=== PATIENT | female | born 1995 | race American Indian/Alaskan Native ===

== ENCOUNTER 2017-02-14 13:36 | Emergency (ER) | payer MEDICAID, OTHER ==
[2017-02-14 13:52] VITALS: BP 115/51
[2017-02-14 14:20] LABS: Basophils % (Auto) 0.7 % (0.0-1.8); Hematocrit 41.3 % (30.3-42.9); Hemoglobin 13.2 gm/dl (10.1-14.3); Mean Corpuscular HGB Conc 32 % (30-34); Mean Corpuscular Hemoglobin 26 pg (28-32); Mean Corpuscular Volume 82 fl (79-97); Red Blood Count 5.02 M/mm3 (3.65-5.03); Red Cell Distribution Width 13.2 % (13.2-15.2); White Blood Count 5.6 K/mm3 (4.5-11.0)
[2017-02-14 14:33] LABS: Platelet Count 134 K/mm3 (140-440)
[2017-02-14 14:40] LABS: Anion Gap 19 mmol/L; BUN/Creatinine Ratio 12; Blood Urea Nitrogen 6 mg/dL (7-17); Calcium 9.1 mg/dL (8.4-10.2); Carbon Dioxide 23 mmol/L (22-30); Chloride 99.7 mmol/L (98-107); Glucose 78 mg/dL (65-100); Potassium 3.6 mmol/L (3.6-5.0); Sodium 138 mmol/L (137-145)
[2017-02-14 15:59] LABS: Urine Drugs of Abuse Note Disclamer
[2017-02-14 16:16] LABS: Bilirubin,Urine NEG (Negative); Blood,Urine NEG (Negative); Ketones,Urine NEG (Negative); Leukocyte Esterase,Urine NEG (Negative); Mucus,Urine 2+ /HPF; Nitrite,Urine NEG (Negative); Protein,Urine <15 mg/dL mg/dL (Negative); Urobilinogen,Urine < 2.0 mg/dL (<2.0)
--- NOTE | 2017-02-14 16:35 | ED Elopement Review ---
ED Pt Elopement review - Results review Lab results: Laboratory Tests 02/14/17 02/14/17 02/14/17 14:08 14:08 14:08 WBC RBC Hgb Hct MCV MCH MCHC RDW Plt Count Lymph % (Auto) [place] % (Auto) Eos % (Auto) Baso % (Auto) Lymph # [place] # Eos # Baso # Seg Neutrophils % Seg Neutrophils # Sodium 138 Potassium 3.6 Chloride 99.7 Carbon Dioxide 23 Anion Gap 19 BUN 6 L Creatinine 0.5 L Estimated GFR > 60 BUN/Creatinine Ratio 12 Glucose 78 Calcium 9.1 HCG, Qual Positive Urine Color Urine Turbidity Urine pH Ur Specific [place] Urine Protein Urine Glucose (UA) Urine Ketones Urine Blood Urine Nitrite Urine Bilirubin Urine Urobilinogen Ur Leukocyte Esterase Urine WBC (Auto) Urine RBC (Auto) U Epithel Cells (Auto) Urine Mucus Plasma/Serum Alcohol < 0.01 02/14/17 02/14/17 14:08 15:33 WBC 5.6 RBC 5.02 Hgb 13.2 Hct 41.3 MCV 82 MCH 26 L MCHC 32 RDW 13.2 Plt Count 134 L Lymph % (Auto) 29.9 [place] % (Auto) 6.6 Eos % (Auto) 0.0 Baso % (Auto) 0.7 Lymph # 1.7 [place] # 0.4 Eos # 0.0 Baso # 0.0 Seg Neutrophils % 62.8 Seg Neutrophils # 3.5 Sodium Potassium Chloride Carbon Dioxide Anion Gap BUN Creatinine Estimated GFR BUN/Creatinine Ratio Glucose Calcium HCG, Qual Urine Color Yellow Urine Turbidity Clear Urine pH 6.0 Ur Specific [place] 1.019 Urine Protein <15 mg/dl Urine Glucose (UA) Neg Urine Ketones Neg Urine Blood Neg Urine Nitrite Neg Urine Bilirubin Neg Urine Urobilinogen < 2.0 Ur Leukocyte Esterase Neg Urine WBC (Auto) 9.0 H Urine RBC (Auto) 5.0 U Epithel Cells (Auto) 8.0 Urine Mucus 2+ Plasma/Serum Alcohol - Call Back decision Pt Call Back Decision: Call pt to return to ED QUIRINO (when I went to see the patient she had eloped from the emergency department. Triage information mentions suicidal ideation. Given to the charge nurse and police will be notified.)
== END 2017-02-14 16:39 | disposition left against medical advice (07) ==
LOC: EEVIPCON 13:36 → ED 13:36
DX: O26.891 Other specified pregnancy related conditions, first trimester (principal); F32.9 Major depressive disorder, single episode, unspecified; Z3A.01 Less than 8 weeks gestation of pregnancy; Z53.21 Procedure and treatment not carried out due to patient leaving prior to being seen by health care provider
CPT/HCPCS: 36415; 80048; 80307; 81001; 84703; 85025; G0480; 80320

== ENCOUNTER 2017-02-20 21:07 | Emergency (ER) | payer MEDICAID, OTHER ==
[2017-02-20] MEDS ORDERED: TYLENOL ONE (22:37)
[2017-02-20 23:03] LABS: Basophils % (Auto) 0.6 % (0.0-1.8); Eosinophils % (Auto) 0.5 % (0.0-4.3); Hematocrit 37.5 % (30.3-42.9); Hemoglobin 12.1 gm/dl (10.1-14.3); Mean Corpuscular HGB Conc 32 % (30-34); Mean Corpuscular Hemoglobin 26 pg (28-32); Mean Corpuscular Volume 81 fl (79-97); Platelet Count 173 K/mm3 (140-440); Red Blood Count 4.62 M/mm3 (3.65-5.03); Red Cell Distribution Width 13.2 % (13.2-15.2); White Blood Count 6.5 K/mm3 (4.5-11.0)
[2017-02-20 23:24] LABS: Alanine Aminotransferase 12 units/L (7-56); Albumin 4.3 g/dL (3.9-5); Albumin/Globulin Ratio 1.6 %; Alkaline Phosphatase 55 units/L (35-129); Anion Gap 18 mmol/L; BUN/Creatinine Ratio 10; Blood Urea Nitrogen 5 mg/dL (7-17); Calcium 9.2 mg/dL (8.4-10.2); Carbon Dioxide 23 mmol/L (22-30); Chloride 100.2 mmol/L (98-107); Glucose 79 mg/dL (65-100); Lipase 10 units/L (13-60); Sodium 137 mmol/L (137-145)
[2017-02-21 00:31] LABS: Bilirubin,Urine NEG (Negative); Blood,Urine NEG (Negative); Ketones,Urine NEG (Negative); Leukocyte Esterase,Urine NEG (Negative); Mucus,Urine FEW /HPF; Nitrite,Urine NEG (Negative); Protein,Urine <15 mg/dL mg/dL (Negative); Urobilinogen,Urine < 2.0 mg/dL (<2.0)
--- NOTE | 2017-02-21 02:02 | Ultrasound Report ---
FINAL REPORT PROCEDURE: US OB TRANSVAGINAL TECHNIQUE: Real-time transvaginal sonography of the uterus, placenta, amniotic fluid, adnexa, and fetus was performed with image documentation. Measurements were obtained to determine age/size. M-mode Doppler was used to document heartbeat. CPT 48529 HISTORY: vaginal bleed with COMPARISON: No prior studies are available for comparison. FINDINGS: CRL: 24.7mm, which corresponds to a gestational age of: 9weeks, 1 days. Yolk Sac: Normal. Embryonic Cardiac Activity: 168 beats per minute Gestational Sac: Normal. There are 3 discrete subchorionic hematomas measuring 2.5 centimeters, 1.8 centimeters and 2 centimeters. Right Ovary: There is a 1.6 centimeters cyst. Left Ovary: There is a 1 centimeter cyst. Estimated delivery date: 09/25/2017 Comment: Complete anatomic survey at 18-20 weeks suggested. IMPRESSION: 1. Single living intrauterine gestation at approximately 9 weeks and 1 day 2. EDC by US 09/25/2017. 3. There are multiple subchorionic hematomas.
--- NOTE | 2017-02-21 02:02 | Ultrasound Report ---
FINAL REPORT PROCEDURE: US OB TRANSVAGINAL TECHNIQUE: Real-time transvaginal sonography of the uterus, placenta, amniotic fluid, adnexa, and fetus was performed with image documentation. Measurements were obtained to determine age/size. M-mode Doppler was used to document heartbeat. CPT 91763 HISTORY: vaginal bleed with COMPARISON: No prior studies are available for comparison. FINDINGS: CRL: 24.7mm, which corresponds to a gestational age of: 9weeks, 1 days. Yolk Sac: Normal. Embryonic Cardiac Activity: 168 beats per minute Gestational Sac: Normal. There are 3 discrete subchorionic hematomas measuring 2.5 centimeters, 1.8 centimeters and 2 centimeters. Right Ovary: There is a 1.6 centimeters cyst. Left Ovary: There is a 1 centimeter cyst. Estimated delivery date: 09/25/2017 Comment: Complete anatomic survey at 18-20 weeks suggested. IMPRESSION: 1. Single living intrauterine gestation at approximately 9 weeks and 1 day 2. EDC by US 09/25/2017. 3. There are multiple subchorionic hematomas.
[2017-02-21 03:16] VITALS: BP 126/81
--- NOTE | 2017-02-21 03:42 | Emergency Department Report ---
ED Female HPI - General Chief complaint: Vaginal Bleeding Stated complaint: VAGINAL BLEEDING 10 WKS PREG Time Seen by Provider: 02/21/17 03:30 Source: patient Mode of arrival: Ambulatory Limitations: No Limitations - History of Present Illness Initial comments: 21-year-old female voluntary from [facility], is with some vaginal spotting. She denied tissue she denied clots. She's had intermittent vaginal spotting with occasional lower abdominal cramps. She denies heavy bleeding she denies soaking pads she denies dizziness or syncope she denies nausea vomiting diarrhea denies any chest pain or other complaints. MD Complaint: vaginal bleeding Associated Symptoms: abdominal pain. denies: vaginal discharge, headaches, loss of appetite, dysuria, hematuria, shortness of breath, syncope, weakness - Related Data Home Medications Medication Instructions Recorded Confirmed Last Taken No Known Home Medications [No 05/23/13 06/06/13 Unknown Reported Home Medications] Allergies Allergy/AdvReac Type Severity Reaction Status Date / Time ibuprofen [From Motrin] Allergy Angioedema Verified 02/14/17 13:43 Penicillins Allergy Rash Verified 02/14/17 13:43 ED Review of Systems ROS: Stated complaint: VAGINAL BLEEDING 10 WKS PREG Other details as noted in HPI Comment: All other systems reviewed and negative Constitutional: denies: diaphoresis, fever, malaise, weakness Respiratory: denies: orthopnea, shortness of breath, SOB with exertion, SOB at rest, stridor Cardiovascular: denies: chest pain, palpitations, dyspnea on exertion, orthopnea , edema, syncope Gastrointestinal: denies: nausea, vomiting, diarrhea, constipation, hematemesis , melena, hematochezia Neurological: denies: numbness, paresthesias, confusion, vertigo ED Past Medical Hx - Past Medical History Hx Arthritis: Yes Hx Psychiatric Treatment: Yes (depression) Additional medical history: Prior suicide attmept - Surgical History Past Surgical History?: No - Social History Smoking Status: Never Smoker Substance Use Type: None - Medications Home Medications: Home Medications Medication Instructions Recorded Confirmed Last Taken Type No Known Home Medications [No 05/23/13 06/06/13 Unknown History Reported Home Medications] ED Physical Exam - General Limitations: No Limitations General appearance: alert, in no apparent distress - Head Head exam: Present: atraumatic, normocephalic - Eye Eye exam: Present: normal appearance, PERRL, EOMI - ENT ENT exam: Present: normal exam - Neck Neck exam: Present: normal inspection. Absent: tenderness, meningismus - Respiratory Respiratory exam: Present: normal lung sounds bilaterally. Absent: respiratory distress, wheezes, rales, rhonchi, stridor - Cardiovascular Cardiovascular Exam: Present: regular rate, normal rhythm, normal heart sounds. Absent: rubs, gallop - GI/Abdominal GI/Abdominal exam: Present: soft. Absent: distended, tenderness, guarding, rebound, rigid, pulsatile mass - Extremities Exam Extremities exam: Present: normal inspection, full ROM. Absent: tenderness, normal capillary refill, pedal edema, calf tenderness - Neurological Exam Neurological exam: Present: alert, oriented X3, CN II-XII intact, normal gait. Absent: motor sensory deficit - Psychiatric Psychiatric exam: Present: anxious - Skin Skin exam: Present: warm. Absent: diaphoretic, erythema ED Course Vital Signs 02/20/17 02/21/17 22:29 03:14 Temperature 98.2 F 98.2 F Pulse Rate 66 96 H Respiratory 18 16 Rate Blood Pressure 114/65 Blood Pressure 126/81 [Left] O2 Sat by Pulse 100 100 Oximetry ED Medical Decision Making - Lab Data Result diagrams: 02/20/17 22:43 02/20/17 22:43 - Radiology Data Radiology results: report reviewed Live 9 week IUP - Medical Decision Making Patient refused pelvic exam. She denied active bleeding. She is not soaking pads. She has live IUP 9 weeks symptoms are consistent with threatened AB, she' ll be referred to OB. Laboratory studies showed a normal H&H stable vital signs : Of 98,000 negative urine Rh+. no a.abdomen at this time stable for outpatient follow-up Critical care attestation.: If time is entered above; I have spent that time in minutes in the direct care of this critically ill patient, excluding procedure time. ED Disposition Clinical Impression: Threatened Disposition: DC/TX-65 PSY HOSP/PSY UNIT Is pt being admited?: No Condition: Stable Instructions: Threatened Miscarriage (ED) Additional Instructions: Pelvic rest, return immediately if new alarming symptoms such as worse bleeding dizziness or other problems Referrals: EDMUND ESQUIVEL MD [Staff Physician] - 3-5 Days Time of Disposition: 03:46
== END 2017-02-21 03:59 ==
LOC: ED 21:07
DX: O20.0 Threatened abortion (principal); Z3A.10 10 weeks gestation of pregnancy; M19.90 Unspecified osteoarthritis, unspecified site; F32.9 Major depressive disorder, single episode, unspecified; Z88.0 Allergy status to penicillin; Z88.6 Allergy status to analgesic agent
CPT/HCPCS: 36415; 76801; 76817; 80053; 81001; 83690; 84702; 85025; 86900; 86901

== ENCOUNTER 2017-04-04 14:44 | Emergency (ER) | payer MEDICAID | END 2017-04-04 15:00 | disposition left against medical advice (07) | LOC: ED 14:44 | DX: R07.89 Other chest pain (principal); Z53.21 Procedure and treatment not carried out due to patient leaving prior to being seen by health care provider | CPT/HCPCS: 93005; 93010 ==

== ENCOUNTER 2020-01-03 18:17 | Emergency (ER) | payer MEDICAID ==
[2020-01-03 18:57] VITALS: BP 115/51
[2020-01-03 20:06] LABS: Bacteria,Urine 1+ /HPF (Negative); Bilirubin,Urine NEG (Negative); Blood,Urine NEG (Negative); Color,Urine Yellow (Yellow); Mucus,Urine FEW /HPF; Protein,Urine <15 mg/dL mg/dL (Negative); Urobilinogen,Urine < 2.0 mg/dL (<2.0)
[2020-01-03 20:13] LABS: Basophils % (Auto) 0.5 % (0.0-1.8); Eosinophils # (Auto) 0.1 K/mm3 (0.0-0.4); Eosinophils % (Auto) 1.1 % (0.0-4.3); Hematocrit 35.8 % (30.3-42.9); Hemoglobin 11.6 gm/dl (10.1-14.3); Lymphocytes # (Auto) 2.1 K/mm3 (1.2-5.4); Lymphocytes % (Auto) 43.8 % (13.4-35.0); Mean Corpuscular HGB Conc 33 % (30-34); Mean Corpuscular Volume 85 fl (79-97); Monocytes # (Auto) 0.4 K/mm3 (0.0-0.8); Monocytes % (Auto) 8.6 % (0.0-7.3); Red Blood Count 4.21 M/mm3 (3.65-5.03); Red Cell Distribution Width 14.4 % (13.2-15.2)
[2020-01-03 20:13] LABS: HCG Qualitative,Urine Positive (Negative)
[2020-01-03 20:14] LABS: WBC,Urine < 1.0 /HPF (0.0-6.0)
[2020-01-03 20:18] LABS: Platelet Count 119 K/mm3 (140-440)
--- NOTE | 2020-01-03 20:23 | Emergency Department Report ---
ED General Adult HPI - General Chief complaint: Abdominal Pain Stated complaint: /BLEEDING/PAIN Time Seen by Provider: 01/03/20 19:24 Source: patient Mode of arrival: Ambulatory Limitations: No Limitations - History of Present Illness Initial comments: Patient is a 24-year-old female presents emergency room complaints of lower abdominal pain that began yesterday. She has associated vaginal spotting. She denies any heavy bleeding or passing clots. She denies any vomiting or diarrhea. She denies any fever or vaginal discharge. She states her last menstrual cycle was November 29, 2019. She states that she did 3 test [id number] which were positive. She has a past medical history of depression. Allergy to penicillin and ibuprofen. /P: 1/A: 2 - Related Data Home Medications Medication Instructions Recorded Confirmed Last Taken No Known Home Medications [No 05/23/13 06/06/13 Unknown Reported Home Medications] Allergies Allergy/AdvReac Type Severity Reaction Status Date / Time ibuprofen [From Motrin] Allergy Angioedema Verified 02/14/17 13:43 Penicillins Allergy Rash Verified 02/14/17 13:43 ED Review of Systems ROS: Stated complaint: /BLEEDING/PAIN Other details as noted in HPI Comment: All other systems reviewed and negative ED Past Medical Hx - Past Medical History Previous Medical History?: Yes Hx Arthritis: Yes Hx Psychiatric Treatment: Yes (depression) Additional medical history: Prior suicide attmept - Social History Smoking Status: Never Smoker Substance Use Type: None - Medications Home Medications: Home Medications Medication Instructions Recorded Confirmed Last Taken Type No Known Home Medications [No 05/23/13 06/06/13 Unknown History Reported Home Medications] ED Physical Exam - General Limitations: No Limitations General appearance: alert, in no apparent distress - Head Head exam: Present: atraumatic, normocephalic - Eye Eye exam: Present: normal appearance - ENT ENT exam: Present: mucous membranes moist - Respiratory Respiratory exam: Present: normal lung sounds bilaterally. Absent: respiratory distress, wheezes, rales, rhonchi, stridor, chest wall tenderness, accessory muscle use, decreased breath sounds, prolonged expiratory - Cardiovascular Cardiovascular Exam: Present: regular rate, normal rhythm, normal heart sounds. Absent: systolic murmur, diastolic murmur, rubs, gallop - GI/Abdominal GI/Abdominal exam: Present: soft, normal bowel sounds. Absent: distended, tenderness, guarding, rebound, rigid - Neurological Exam Neurological exam: Present: alert, oriented X3 - Psychiatric Psychiatric exam: Present: normal affect, normal mood - Skin Skin exam: Present: warm, dry, intact ED Course Vital Signs 01/03/20 18:48 Temperature 98.2 F Pulse Rate 88 Respiratory 16 Rate Blood Pressure 115/51 O2 Sat by Pulse 100 Oximetry ED Medical Decision Making - Lab Data Result diagrams: 01/03/20 20:03 01/03/20 20:03 Labs 01/03/20 01/03/20 01/03/20 19:00 20:03 20:03 WBC 4.8 RBC 4.21 Hgb 11.6 Hct 35.8 MCV 85 MCH 28 MCHC 33 RDW 14.4 Plt Count 119 L Lymph % (Auto) 43.8 H [place] % (Auto) 8.6 H Eos % (Auto) 1.1 Baso % (Auto) 0.5 Lymph # (Auto) 2.1 [place] # (Auto) 0.4 Eos # (Auto) 0.1 Baso # (Auto) 0.0 Seg Neutrophils % 46.0 Seg Neutrophils # 2.2 Sodium 140 Potassium 3.8 Chloride 104.4 Carbon Dioxide 24 Anion Gap 15 BUN 6 L Creatinine 0.7 Estimated GFR > 60 BUN/Creatinine Ratio 9 Glucose 77 Calcium 8.6 Total Bilirubin 0.30 AST 12 ALT 9 Alkaline Phosphatase 64 Total Protein 6.7 Albumin 3.8 L Albumin/Globulin Ratio 1.3 HCG, Quant Urine Color Yellow Urine Turbidity Clear Urine pH 7.0 Ur Specific [place] 1.012 Urine Protein <15 mg/dl Urine Glucose (UA) Neg Urine Ketones Neg Urine Blood Neg Urine Nitrite Neg Urine Bilirubin Neg Urine Urobilinogen < 2.0 Ur Leukocyte Esterase Tr Urine WBC (Auto) < 1.0 Urine RBC (Auto) 5.0 U Epithel Cells (Auto) 12.0 Urine Bacteria (Auto) 1+ Urine Mucus Few Urine HCG, Qual Positive A Blood Type 01/03/20 01/03/20 20:03 20:03 WBC RBC Hgb Hct MCV MCH MCHC RDW Plt Count Lymph % (Auto) [place] % (Auto) Eos % (Auto) Baso % (Auto) Lymph # (Auto) [place] # (Auto) Eos # (Auto) Baso # (Auto) Seg Neutrophils % Seg Neutrophils # Sodium Potassium Chloride Carbon Dioxide Anion Gap BUN Creatinine Estimated GFR BUN/Creatinine Ratio Glucose Calcium Total Bilirubin AST ALT Alkaline Phosphatase Total Protein Albumin Albumin/Globulin Ratio HCG, Quant 1353 H Urine Color Urine Turbidity Urine pH Ur Specific [place] Urine Protein Urine Glucose (UA) Urine Ketones Urine Blood Urine Nitrite Urine Bilirubin Urine Urobilinogen Ur Leukocyte Esterase Urine WBC (Auto) Urine RBC (Auto) U Epithel Cells (Auto) Urine Bacteria (Auto) Urine Mucus Urine HCG, Qual Blood Type O POSITIVE - Radiology Data Radiology results: report reviewed ULTRASOUND OBSTETRIC INDICATION / CLINICAL INFORMATION: , abd pain, spotting. Clinical Gestational Age (GA): 5 weeks 0 days TECHNIQUE: Transabdominal. COMPARISON: None available. FINDINGS: No evidence of gestational sac within the uterus. Endometrium is slightly thickened measuring 12 mm. The uterus is otherwise unremarkable ADNEXA: Right ovary is well-visualized and appears unremarkable. There is a 1.4 cm cyst within the left ovary. The left ovary is otherwise normal. FREE FLUID: None. ADDITIONAL FINDINGS: None. IMPRESSION: 1. No evidence of gestational sac at this time. It is more than likely too early within the gestation for visualization of a gestational sac. 2. No evidence of adnexal mass or free fluid. Signer Name: Ciara Leal MD Signed: 01/03/2020 9:21 PM Workstation Name: [id number] Transcribed By: Dictated By: Ciara Leal MD Electronically Authenticated By: Ciara Leal MD Signed Date/Time: 01/03/202120 DD/ 17 TD/TT: - Medical Decision Making Patient is a 24-year-old female presents emergency room complaints of lower abdominal pain that began yesterday. She has associated vaginal spotting. She denies any heavy bleeding or passing clots. She denies any vomiting or diarrhea. She denies any fever or vaginal discharge. She states her last menstrual cycle was November 29, 2019. She states that she did 3 test [id number] which were positive. She has a past medical history of depression. Allergy to penicillin and ibuprofen. /P: 1/A: 2. vitals are normal. no abd ttp, no guarding, no rebound, no rigidity. labs with mild thrombocytopenia. hcg quant 1353. UA is WNL. urine is positive. pt is Rh positive. US OB: 1. No evidence of gestational sac at this time. It is more than likely too early within the gestation for visualization of a gestational sac. 2. No evidence of adnexal mass or free fluid. Given that patient's hCG quant is only 1353 it could be that it is too early. Discussed all findings with patient. Discussed the importance of close follow-up. Advised patient that she would need to have a repeat hCG quant in 2 days. advised pt you need to have a repeat hCG quant in 2 days. Today 01/03/2020 your hCG quant is 1353. May take Tylenol as needed for any discomfort. Please take a vitamin [id number]. Increase your water intake. Follow-up with [facility]. Return to emergency room for any new or worsening symptoms. - Differential Diagnosis Ectopic, IUP, ovarian cyst, adenomyosis, UTI, Critical care attestation.: If time is entered above; I have spent that time in minutes in the direct care of this critically ill patient, excluding procedure time. ED Disposition Clinical Impression: Abdominal cramping, Vaginal spotting, Elevated serum hCG, Thrombocytopenia Disposition: DC-01 TO HOME OR SELFCARE Is pt being admited?: No Does the pt Need Aspirin: No Condition: Stable Instructions: Abdominal Pain (ED) Additional Instructions: you need to have a repeat hCG quant in 2 days. Today 01/03/2020 your hCG quant is 1353. May take Tylenol as needed for any discomfort. Please take a vitamin [id number]. Increase your water intake. Follow-up with [facility]. Return to emergency room for any new or worsening symptoms. Referrals: PRIMARY CAREMD [Primary Care Provider] - 2-3 Days [facility] [Provider Group] - 2-3 Days [facility] [Provider Group] - 2-3 Days [facility] [Provider Group] - 2-3 Days Time of Disposition: 21:57 Print Language: GUINEAN
[2020-01-03 20:30] LABS: Alanine Aminotransferase 9 units/L (7-56); Albumin 3.8 g/dL (3.9-5); Blood Urea Nitrogen 6 mg/dL (7-17); Calcium 8.6 mg/dL (8.4-10.2); Hemolysis Index 3
[2020-01-03 20:34] LABS: BUN/Creatinine Ratio 9
--- NOTE | 2020-01-03 21:25 | Ultrasound Report ---
ULTRASOUND OBSTETRIC INDICATION / CLINICAL INFORMATION: , abd pain, spotting. Clinical Gestational Age (GA): 5 weeks 0 days TECHNIQUE: Transabdominal. COMPARISON: None available. FINDINGS: No evidence of gestational sac within the uterus. Endometrium is slightly thickened measuring 12 mm. The uterus is otherwise unremarkable ADNEXA: Right ovary is well-visualized and appears unremarkable. There is a 1.4 cm cyst within the le ft ovary. The left ovary is otherwise normal. FREE FLUID: None. ADDITIONAL FINDINGS: None. IMPRESSION: 1. No evidence of gestational sac at this time. It is more than likely too early within the gestation for visualization of a gestational sac. 2. No evidence of adnexal mass or free fluid. Signer Name: Ciara Leal MD Signed: 01/03/2020 9:21 PM Workstation Name: [id number]
== END 2020-01-03 22:55 | disposition home or self-care (01) ==
LOC: ED 18:17
DX: O02.81 Inappropriate change in quantitative human chorionic gonadotropin (hCG) in early pregnancy (principal); O36.8290 Fetal anemia and thrombocytopenia, unspecified trimester, not applicable or unspecified; O26.891 Other specified pregnancy related conditions, first trimester; R10.30 Lower abdominal pain, unspecified; M19.91 Primary osteoarthritis, unspecified site; F32.9 Major depressive disorder, single episode, unspecified; Z3A.01 Less than 8 weeks gestation of pregnancy; Z88.6 Allergy status to analgesic agent; Z88.0 Allergy status to penicillin
CPT/HCPCS: 36415; 76801; 80053; 81001; 81025; 84702; 85025; 86900; 86901